=== PATIENT | male | born 1940 | race Caucasian/White ===

== ENCOUNTER 2016-10-21 11:38 | Inpatient (IN) ==
--- NOTE | 2016-10-20 20:47 | Discharge Summary ---
<Yecenia Schultz - Last Filed: 10/21/16 09:45> Date of Encounter: 10/21/16 - Discharge Diagnosis (1) Arthritis of right hip Priority: Primary Status: Acute (2) Accelerated hypertension Priority: Secondary Status: Chronic (3) Chronic kidney disease Priority: Secondary Status: Chronic Qualifiers: Chronic kidney disease stage: unspecified stage Qualified Code(s): N18.9 - Chronic kidney disease, unspecified (4) Coronary artery disease with unstable angina pectoris Priority: Secondary Status: Chronic Qualifiers: Coronary Disease-Associated Artery/Lesion type: unspecified vessel or lesion type [place] vs. transplanted heart: unspecified whether [place] or transplanted heart Qualified Code(s): I25.110 - Atherosclerotic heart disease of [place] coronary artery with unstable angina pectoris (5) Dyslipidemia Priority: Secondary Status: Chronic (6) History of coronary artery bypass graft x 3 Priority: Secondary Status: Chronic (7) Parkinsons disease Priority: Secondary Status: Chronic - Discharge Medications Home Medications: Aspirin [Adult Low Dose Aspirin EC] 81 mg PO HS 10/05/15 [History] FLUoxetine HCl [Prozac] 20 mg PO DAILY 10/05/15 [History] Furosemide [Lasix] 20 mg PO HS 10/05/15 [History] Losartan Potassium [Cozaar] 100 mg PO HS 10/05/15 [History] Nitroglycerin [Nitrostat] 0.4 mg SL AD PRN 10/05/15 [History] Metoprolol [Lopressor] 50 mg PO BID 30 Days 10/14/15 [Rx] Carbidopa/Levodopa 25/100 [Sinemet 25/100] 0.5 each PO TID tablet 02/15/16 [Rx] Oxybutynin [Ditropan] 5 mg PO TID #90 tablet 06/20/16 [Rx] Atorvastatin [Lipitor] 40 mg PO HS 09/19/16 [History] Aspirin Enteric Coated [Aspirin EC] 325 mg PO DAILY #21 tablet 10/20/16 [Rx] OxyCODONE Immed Rel [Roxicodone 5 MG] 5 - 10 mg PO Q6HR PRN #40 tablet 10/20/16 [Rx] Amlodipine Besylate 10 mg PO HS 10/21/16 [History] Cholecalciferol (D-3) [Vitamin D] 5,000 unit PO DAILY 10/21/16 [History] Clopidogrel [Plavix] 75 mg PO HS 10/21/16 [History] Gabapentin 300 mg PO TID 10/21/16 [History] Potassium Chloride [Klor-Con 10] 30 meq PO DAILY 10/21/16 [History] Allergies/Adverse Reactions: Allergies methocarbamol [From Robaxin] Allergy (Verified 10/21/16 13:11) Difficulty Breathing methylprednisolone [From Medrol] Allergy (Verified 10/21/16 13:11) Difficulty Breathing Primary care physician: Renée Norton CNP - Patient Status Disposition: Transfer Inpatient Rehab Fac Condition: Good - Discharge Instructions Follow Up With: Refugio Ware MD [Partnered Physician] - 11/19/16 9:50 am Yecenia Schultz PAC [Physician Forensics Team Director] - 10/30/16 11:15 am Rachid Wheatley CNP [Advanced Practice Nurse] - 03/26/17 2:00 pm Errol,Renée Nash CNP [Primary Care Provider] - 12/24/16 1:30 pm - Hospital Course Hospital course: Mr. Pack is a 75 year old male - Time Spent with Patient Total time spent providing and/or coordinating discharge services: <Refugio Ware - Last Filed: 10/25/16 06:26> Date of Encounter: 10/25/16 Time of Encounter: 06:25 - Discharge Diagnosis (1) Arthritis of right hip Priority: Primary Status: Acute (2) Bradycardia Priority: Secondary Status: Chronic (3) Hypotension Priority: Secondary Status: Chronic Qualifiers: Qualified Code(s): I95.9 - Hypotension, unspecified (4) Malignant neoplasm of prostate Priority: Secondary Status: Chronic (5) Accelerated hypertension Priority: Secondary Status: Chronic (6) Chronic kidney disease Priority: Secondary Status: Chronic Qualifiers: Qualified Code(s): N18.3 - Chronic kidney disease, stage 3 (moderate) (7) Coronary artery disease with unstable angina pectoris Priority: Secondary Status: Chronic Qualifiers: Qualified Code(s): I25.110 - Atherosclerotic heart disease of [place] coronary artery with unstable angina pectoris (8) Dyslipidemia Priority: Secondary Status: Chronic (9) History of coronary artery bypass graft x 3 Priority: Secondary Status: Chronic (10) Parkinsons disease Priority: Secondary Status: Chronic (11) S/P PTCA (percutaneous transluminal coronary angioplasty) Priority: Secondary Status: Chronic (12) Acute blood loss anemia Priority: Primary Status: Acute Primary care physician: Renée Norton CNP - Patient Status Functional capacity at discharge: uses cane/walker Overall status at discharge: patient is progressing back to baseline - Hospital Course Hospital course: Mr. Pack is a 75 year old male The patient had an uneventful postoperative course. They received antibiotics and physical therapy and were discharged in stable condition. There will follow -up in the office in 2 weeks. Aspirin DVT prophylaxis - Time Spent with Patient Total time spent providing and/or coordinating discharge services:
[2016-10-21] MEDS ORDERED: CeFAZolin Pre 2,000 MG/100 ML 2,000 MG/100 ML BAG IVPB ONE (12:02)
[2016-10-21] MEDS ORDERED: Ringers Solution, Lactated 1,000 ML IVC SCH ×2 (12:15→16:23)
[2016-10-21] MEDS ORDERED: *HR* FentaNYL (PF) 100 MCG/2 ML VIAL ONE ×2 (12:45→14:30)
[2016-10-21] MEDS ORDERED: *HR* Midazolam HCl 2 MG/2 ML VIAL ONE (12:46)
[2016-10-21] MEDS ORDERED: *HR* Propofol 200 MG/20 ML VIAL IVP ONE (12:47)
[2016-10-21] MEDS ORDERED: Lidocaine -MPF 2% 2 ML VIAL ONE (12:48)
[2016-10-21] MEDS ORDERED: *HR* HYDROmorphone (PF) 1 MG/ML SYRINGE IVP PRN ×2 (12:51→16:23)
[2016-10-21] MEDS ORDERED: *HR* Labetalol 100 MG/20 ML MDV IVP PRN (12:51)
[2016-10-21] MEDS ORDERED: *HR* Promethazine 25 MG/ML VIAL IVP PRN (12:51)
[2016-10-21] MEDS ORDERED: Ketorolac 30 MG/ML VIAL ONE (12:59)
--- NOTE | 2016-10-21 13:03 | History & Physical Report ---
Date of Encounter: 10/21/16 Time of Encounter: 13:03 24 Hour HP Update - Instructions Instructions: If the History and Physical is less than 30 days old and was completed prior to A.M. admission and or procedure and has NOT been updated on calendar day of procedure please complete this update prior to performing procedure. - Update Patient reports changes in Medical Condition: No Changes in assessment/condition: No Changes in Medication: No Preop tests/diagnostics Reviewed: Yes Surgery Remains Indicated: Yes Consent for Planned Operative Procedure(s) Verified: Yes - Pre-Operative Checklist Preoperative Checklist Indicated: No Prophylactic Antibiotic Ordered: Yes Is VTE Prophylaxis Indicated?: Yes
[2016-10-21] MEDS ORDERED: Acetaminophen IV 1,000 MG/100 ML INFUS..BTL IVPB ONE (13:18)
[2016-10-21] MEDS ORDERED: Famotidine 20 MG/2 ML VIAL IVP ONE (13:18)
--- NOTE | 2016-10-21 13:21 | Anesthesia Evaluation PreOp ---
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 Other Medical History: Denies Any Significant HX Anesthesia History: No Prior Anesthetic Complications Alcohol Use: none Drug use: none Medications and Allergies Aspirin [Adult Low Dose Aspirin EC] 81 mg PO DAILY 10/05/15 [History] FLUoxetine HCl [Prozac] 20 mg PO DAILY 10/05/15 [History] Furosemide [Lasix] 20 mg PO DAILY 10/05/15 [History] Losartan Potassium [Cozaar] 100 mg PO DAILY 10/05/15 [History] Nitroglycerin [Nitrostat] 0.4 mg SL AD PRN 10/05/15 [History] Potassium Chloride [Klor-Con Sprinkle] 10 meq PO TID 10/05/15 [History] Vitamin D3/Folic Acid [Dermacinrx Purefolix Tablet] 5,000 unit PO DAILY [History] Clopidogrel [Plavix] 75 mg PO DAILY 30 Days 10/14/15 [Rx] Metoprolol [Lopressor] 50 mg PO BID 30 Days 10/14/15 [Rx] Carbidopa/Levodopa 25/100 [Sinemet 25/100] 0.5 each PO TID tablet 02/15/16 [Rx] Gabapentin [Gralise] 300 mg PO 04/16/16 [History] Oxybutynin [Ditropan] 5 mg PO TID #90 tablet 06/20/16 [Rx] Amlodipine [Norvasc] 5 mg PO BID 09/19/16 [History] Atorvastatin [Lipitor] 40 mg PO TID 09/19/16 [History] Hydrocodone/Acetaminophen [[place] 10-325 Tablet] 1 each PO PRN 09/19/16 [History] Tizanidine HCl 2 mg PO TID PRN 09/19/16 [History] Aspirin Enteric Coated [Aspirin EC] 325 mg PO DAILY #21 tablet. 10/20/16 [Rx] OxyCODONE Immed Rel [Roxicodone 5 MG] 5 - 10 mg PO Q6HR PRN #40 tablet 10/20/16 [Rx] Allergies methocarbamol [From Robaxin] Allergy (Verified 10/21/16 13:11) Difficulty Breathing methylprednisolone [From Medrol] Allergy (Verified 10/21/16 13:11) Difficulty Breathing - Meds/Allergy Pre-op Review Medications Reviewed: Yes Allergies Reviewed: Yes Beta Blockers on Current Med List: Yes (Took Metoprolol today 080) Anesthesia Results - Labs Laboratory Tests 05/09/16 10/17/16 10/17/16 16:40 09:01 09:01 Hgb 12.6 L Hct 35.9 L Plt Count 231 Sodium 137 Potassium 3.8 BUN 22 POC Creatinine 1.30 Hemoglobin A1c 10/17/16 09:01 Hgb Hct Plt Count Sodium Potassium BUN POC Creatinine Hemoglobin A1c 5.3 - Imaging EKG: report reviewed (SB with First Degree AV Block) Additional studies: Cardiac Cath 2015 EF 65%, patent graft Anesthesia Exam O2 Sat Height 1.75 m Height 1.75 m Height 1.75 m Weight 112.945 kg Weight 112.945 kg Weight 112.945 kg O2 Sat by Pulse Oximetry 98 Vital Signs Temp Pulse Resp BP Pulse Ox 98.0 F 58 18 144/82 98 10/21/16 12:00 10/21/16 12:00 10/21/16 12:00 10/21/16 12:00 10/21/16 12:00 Height: 5'9 Weight: 245 lbs NPO (# of Hours): MN - HEENT Pupil (Motor): Pupils equal, EOMI Mallampati: II Teeth: Normal Oral Opening: Greater than 3 - MOTOR COACH BUS DRIVER LOC: Oriented MOTOR COACH BUS DRIVER Motor: Normal RUE, Normal LUE, Normal RLE, Normal LLE, Normal Face MOTOR COACH BUS DRIVER Sensory: Normal: RUE, LUE, RLE, LLE, Face - Cardiac Rhythm: Regular Murmur: None JVD: No Carotid Bruit: No - Pulmonary Breath Sounds: bilateral Clear Respiratory Effort: Symmetrical Anesthesia Assess/Plan ASA Score: 3 (CAD) Modified Herreid Scale for Level of Consciousness: Cooperative, oriented, and tranquil Anesthetic Plan: General Monitoring Plan: Standard Monitors Recovery Plan: PACU (Discussed GA, agrees to proceed)
[2016-10-21] MEDS ORDERED: Lidocaine -MPF 4% 5 ML AMPUL ONE (13:49)
[2016-10-21] MEDS ORDERED: *HR* Succinylcholine 200 MG/10 ML VIAL IVP ONE (13:56)
[2016-10-21] MEDS ORDERED: EPHEDrine 50 MG/ML VIAL ONE (14:24)
[2016-10-21] MEDS ORDERED: Ondansetron 4 MG/2 ML VIAL ONE (14:32)
[2016-10-21] MEDS ORDERED: Dexamethasone 4 MG/ML VIAL ONE (14:32)
--- NOTE | 2016-10-21 14:56 | Orthopedic Operative Note ---
Date of procedure: 10/21/16 Pre-op diagnosis: Right hip arthritis Post-op diagnosis: same Procedure: Procedure: Right Total Hip Replacment Estimated blood loss: 200 cc Hardware: Biomet DM Cup: G7 fin cup 62 Femoral size echo full profile lateralized stem 11 Head: +9 head with Sabiha Procedural Notes: Grade 4 arthritic changes femoral head and acetabular socket. Operative procedure: The patient was brought to the operating room and placed on the operating room table. After general anesthesia was administered the patient was placed in the lateral decubitus position with the operative leg up. All pressure points were padded appropriately and the head was stabilized in the neutral position. The operative extremity was prepped and draped in the sterile surgical fashion patient received IV antibiotic prior to skin incision. A standard posterior approach is made to the operative hip, the incision was made through the skin and subcutaneous tissue hemostasis was obtained with Bovie cautery. Using careful sharp dissection the fascia was identified and incised exposing the external rotators. The external rotators were released off the greater trochanter and tagged with #2 FiberWire suture. The capsule was T'd open and the hip was brought into internal rotation. Patient noted to have grade 4 arthritic changes femoral head. The femoral neck cut was made at the appropriate level. An anterior capsulotomy was performed for the anterior retractor. Soft tissues removed from the acetabulum. Patient noted to have grade 4 arthritic changes acetabulum. Acetabulum was first reamed medially, and then reamed in 15 degrees of anteversion and 45 degrees off the horizontal. It was reamed up to the appropriate size 62 The appropriate-sized 62 acetabular cup was impacted in place in 15 degrees of anteversion and 45 degrees off the horizontal. This had good fit and fixation. The hip was brought back in to internal rotation and prepared with the box blank machine operator helper followed by the canal finder followed by broaching process in 20 degrees anteversion. It was broached up to the appropriate size 11 The femoral implant was impacted in place in 20 degrees of anteversion. Trial reduction found the hip to be stable with +9 head and Sabiha. The trials were removed and the real implants were impacted in place. The hip was reduced, patient had apparent equal leg lengths. The hip had excellent stability with forward flexion to 90 degrees adduction of 30 degrees and internal rotation of 60 degrees. The hip had no shuck. The hips after 2 minutes with a Betadine saline solution. It was irrigated out with 2 L of pulse irrigation. The external rotators were reattached to drill holes in the greater trochanter. Fascia was closed with a running #2 PDS suture. The deep tissue was irrigated and closed deep with #1 PDS suture superficially with 0 PDS suture and skin was closed with Dermabond and skin yolande. The patient was placed in a sterile dressing and abduction pillow. The patient was extubated and transferred to the recovery room in stable condition. Anesthesia: GETA Surgeon: Refugio Ware Condition: stable Disposition: PACU
--- NOTE | 2016-10-21 15:48 | Anesthesia Evaluation Post Op ---
Date of Encounter: 10/21/16 Time of Encounter: 15:40 - Vital Signs Vital Signs: Vital Signs/O2 Sat/Glucose, Most Current Temp Pulse Resp BP Pulse Ox 10/21/16 15:40 75 14 150/87 95 10/21/16 15:30 75 20 140/92 94 L 10/21/16 15:20 98.3 F 77 14 141/86 93 L 10/21/16 12:00 98.0 F 58 18 144/82 98 - Lungs Lungs: Clear Ascult./Percussion - Airway Airway: Non-obstructed - Cardiovascular Regular Rate - Mental Status Mental Status: Alert & Oriented, Answers Appropriately - Pain Pain Scale: 0 - Nausea Vomiting Nausea Vomiting: Not Present - Hydration Hydration: Ice chips - Discharge PostOp Status: Transfer Patient to floor
[2016-10-21 16:08] LABS: Hematocrit 33.3 % (37.5-50.1); Hemoglobin 11.5 g/dL (12.9-16.9)
[2016-10-21] MEDS ORDERED: MOM Conc 10 ML UD.LIQ PO PRN (16:23)
[2016-10-21] MEDS ORDERED: Nitroglycerin 0.4 MG TAB.SUBL SL PRN (16:23)
[2016-10-21] MEDS ORDERED: Albuterol Neb 1.25 MG/3 ML VIAL IH ONE (16:23)
[2016-10-21] MEDS ORDERED: Naloxone 0.4 MG/ML INJ IVP PRN (16:23)
[2016-10-21] MEDS ORDERED: Sennosides 8.6 MG TABLET PO PRN (16:23)
[2016-10-21] MEDS ORDERED: Ondansetron 4 MG/2 ML VIAL IVP PRN (16:23)
[2016-10-21] MEDS ORDERED: Temazepam 15 MG CAPSULE PO PRN (16:23)
[2016-10-21] MEDS ORDERED: ceFAZolin 2,000 MG in D5% in Water 100 ML IVPB SCH (16:30)
[2016-10-21] MEDS: *HR* Enoxaparin 30 MG/0.3 ML SYRINGE SQ SCH (16:54)
[2016-10-21] MEDS: *HR* OxyCODONE Immed Rel 5 MG TABLET PO PRN ×2 (16:55→22:38)
[2016-10-21] MEDS: Gabapentin 300 MG CAPSULE PO SCH ×2 (16:56→21:02)
[2016-10-21] MEDS: Ascorbic Acid 500 MG TABLET PO SCH (16:56)
[2016-10-21] MEDS: Carbidopa/Levodopa 25/100 TABLET PO SCH ×2 (16:56→21:04)
[2016-10-21] MEDS ORDERED: *HR* Enoxaparin 30 MG/0.3 ML SYRINGE SQ SCH (18:00)
[2016-10-21] MEDS ORDERED: Aspirin Enteric Coated 81 MG Tablet PO SCH (21:00)
[2016-10-21] MEDS: amLODIPine 5 MG TABLET PO SCH (21:03)
[2016-10-21] MEDS: Furosemide 20 MG TABLET PO SCH (21:04)
[2016-10-21] MEDS: ceFAZolin 2,000 MG in D5% in Water 100 ML IVPB SCH (22:37)
[2016-10-22] MEDS: *HR* Enoxaparin 30 MG/0.3 ML SYRINGE SQ SCH ×2 (04:59→18:38)
[2016-10-22 06:02] LABS: Hematocrit 29.3 % (37.5-50.1); Hemoglobin 10.2 g/dL (12.9-16.9)
[2016-10-22 06:21] LABS: BUN/Creatinine Ratio 18 (6-26); Blood Urea Nitrogen 24 mg/dL (8-26); Carbon Dioxide 24 mEq/L (19-29); Chloride 103 mEq/L (98-109); Glucose 174 mg/dL (70-99); Osmolality,Calculated 288 (280-300); Potassium 4.6 mEq/L (3.5-4.5); Sodium 135 mEq/L (136-145); eGFR For African Americans > 60 (> 60); eGFR For Non-African Americans 52 (> 60)
--- NOTE | 2016-10-22 06:34 | Orthopedics Progress Note ---
Date of Encounter: 10/22/16 Time of Encounter: 06:33 - Assessment and Plan (1) Arthritis of right hip Current Visit: Yes Status: Acute (2) Bradycardia Current Visit: No Status: Chronic (3) Hypotension Current Visit: No Status: Chronic Qualifiers: Hypotension type: unspecified hypotension type Qualified Code(s): I95.9 - Hypotension, unspecified (4) Malignant neoplasm of prostate Current Visit: No Status: Chronic (5) Accelerated hypertension Current Visit: No Status: Chronic (6) Chronic kidney disease Current Visit: No Status: Chronic Qualifiers: Chronic kidney disease stage: stage 3 (moderate) Qualified Code(s): N18.3 - Chronic kidney disease, stage 3 (moderate) (7) Coronary artery disease with unstable angina pectoris Current Visit: No Status: Chronic Qualifiers: Coronary Disease-Associated Artery/Lesion type: unspecified vessel or lesion type [place] vs. transplanted heart: unspecified whether [place] or transplanted heart Qualified Code(s): I25.110 - Atherosclerotic heart disease of [place] coronary artery with unstable angina pectoris (8) Dyslipidemia Current Visit: No Status: Chronic (9) History of coronary artery bypass graft x 3 Current Visit: No Status: Chronic (10) Parkinsons disease Current Visit: No Status: Chronic (11) S/P PTCA (percutaneous transluminal coronary angioplasty) Current Visit: No Status: Chronic Subjective Interval history: Patient was seen this morning doing well without complaints. Afebrile vital signs stable. Operative extremity: Neurovascularly intact Dressing clean dry and intact Calves nontender Assessment and plan: Continue with postoperative care Hemoglobin 10.2 Objective Vital signs: Vital Signs Temp Pulse Resp BP Pulse Ox 10/22/16 03:25 98.2 F 67 18 120/76 93 L 10/21/16 23:49 98.5 F 61 15 133/71 92 L 10/21/16 21:19 62 144/78 10/21/16 19:02 98.1 F 61 19 133/75 96 10/21/16 17:04 97.6 F 63 18 126/73 99 10/21/16 17:02 16 95 10/21/16 16:31 95 10/21/16 16:23 97.8 F 63 16 137/79 96 10/21/16 15:49 98.1 F 72 14 127/85 95 10/21/16 15:40 75 14 150/87 95 10/21/16 15:30 75 20 140/92 94 L 10/21/16 15:20 98.3 F 77 14 141/86 93 L 10/21/16 12:00 98.0 F 58 18 144/82 98 Intake and Output 10/21/16 10/21/16 10/22/16 15:59 23:59 07:59 Intake Total 100 / 100 Output Total 200 / 200 100 / 100 Balance -200 / -200 0 / 0 Intake: IV Fluids 100 / 100 Ancef 2,000 MG In 100 / 100 Dextrose 5% 100 ML @ 200 mls/hr IVPB Q8H [facility] Rx#: [id number] Output: Urine 100 / 100 Estimated Blood Loss 200 / 200 Other: Weight 112.945 kg - Labs CBC & BMP: 10/22/16 05:05 10/22/16 05:05 Labs: Abnormal lab results Hgb 10.2 g/dL (12.9-16.9) L 10/22/16 05:05 Hct 29.3 % (37.5-50.1) L 10/22/16 05:05 Sodium 135 mEq/L (136-145) L 10/22/16 05:05 Potassium 4.6 mEq/L (3.5-4.5) H 10/22/16 05:05 Creatinine 1.34 mg/dL (0.72-1.25) H 10/22/16 05:05 Est GFR (Non-Af Amer) 52 (> 60) L 10/22/16 05:05 Glucose 174 mg/dL (70-99) H 10/22/16 05:05 - VTE Documentation of Mechanical Device: Venous foot pump, device Consult Discharge Plan - Plan Referrals: Renée Norton, PUMP ERECTOR [Primary Care Provider] -
[2016-10-22] MEDS: ceFAZolin 2,000 MG in D5% in Water 100 ML IVPB SCH (07:14)
[2016-10-22] MEDS: Ascorbic Acid 500 MG TABLET PO SCH ×2 (07:43→15:53)
[2016-10-22] MEDS: Carbidopa/Levodopa 25/100 TABLET PO SCH ×3 (07:43→19:38)
[2016-10-22] MEDS: Multivit/Ca/Min/Fe/FA 1 TAB TABLET PO SCH (07:43)
[2016-10-22] MEDS: Gabapentin 300 MG CAPSULE PO SCH ×3 (07:43→19:37)
[2016-10-22] MEDS: *HR* OxyCODONE Immed Rel 5 MG TABLET PO PRN ×3 (07:44→15:54)
[2016-10-22] MEDS: Cholecalciferol (D-3) 1,000 UNIT TABLET PO SCH (07:44)
[2016-10-22] MEDS: FLUoxetine 20 MG CAPSULE PO SCH (07:44)
[2016-10-22] MEDS: amLODIPine 5 MG TABLET PO SCH (19:37)
[2016-10-22] MEDS: Furosemide 20 MG TABLET PO SCH (19:38)
[2016-10-23] MEDS: *HR* Enoxaparin 30 MG/0.3 ML SYRINGE SQ SCH ×2 (05:28→18:30)
[2016-10-23 06:44] LABS: Hematocrit 25.5 % (37.5-50.1); Hemoglobin 8.7 g/dL (12.9-16.9)
[2016-10-23 06:55] LABS: Calcium 9.3 mg/dL (8.6-10.8); Potassium 4.3 mEq/L (3.5-4.5)
--- NOTE | 2016-10-23 07:35 | Orthopedics Progress Note ---
Date of Encounter: 10/23/16 Time of Encounter: 07:35 - Assessment and Plan (1) Arthritis of right hip Current Visit: Yes Status: Acute (2) Bradycardia Current Visit: No Status: Chronic (3) Hypotension Current Visit: No Status: Chronic Qualifiers: Qualified Code(s): I95.9 - Hypotension, unspecified (4) Malignant neoplasm of prostate Current Visit: No Status: Chronic (5) Accelerated hypertension Current Visit: No Status: Chronic (6) Chronic kidney disease Current Visit: No Status: Chronic Qualifiers: Qualified Code(s): N18.3 - Chronic kidney disease, stage 3 (moderate) (7) Coronary artery disease with unstable angina pectoris Current Visit: No Status: Chronic Qualifiers: Qualified Code(s): I25.110 - Atherosclerotic heart disease of [place] coronary artery with unstable angina pectoris (8) Dyslipidemia Current Visit: No Status: Chronic (9) History of coronary artery bypass graft x 3 Current Visit: No Status: Chronic (10) Parkinsons disease Current Visit: No Status: Chronic (11) S/P PTCA (percutaneous transluminal coronary angioplasty) Current Visit: No Status: Chronic (12) Acute blood loss anemia Current Visit: Yes Status: Acute Subjective Interval history: Patient was seen this morning doing well without complaints. Afebrile vital signs stable. Operative extremity: Neurovascularly intact Dressing clean dry and intact Calves nontender Assessment and plan: Continue with postoperative care Hematocrit 25, creatinine 1.9 for patient will receive 2 units of blood repeat BMP in a.m. Objective Vital signs: Vital Signs Temp Pulse Resp BP Pulse Ox 10/23/16 06:40 98.5 F 84 16 137/74 95 10/23/16 00:00 98.7 F 80 16 135/69 94 L 10/22/16 21:49 98.2 F 63 17 107/61 94 L 10/22/16 15:37 98.1 F 58 18 99/64 93 L 10/22/16 11:02 97.9 F 58 16 148/82 93 L Intake and Output 10/22/16 10/22/16 10/23/16 15:59 23:59 07:59 Intake Total 340 / 340 Output Total 100 / 100 500 / 500 Balance 340 / 340 -100 / -100 -500 / -500 Intake: IV Fluids 100 / 100 Ancef 2,000 MG In 100 / 100 Dextrose 5% 100 ML @ 200 mls/hr IVPB Q8H [facility] Rx#: [id number] Oral 240 / 240 Output: Urine 100 / 100 500 / 500 Other: Meal Lunch Percent of Meal Consumed 100% - Labs CBC & BMP: 10/23/16 06:06 10/23/16 06:06 Labs: Abnormal lab results Hgb 8.7 g/dL (12.9-16.9) L D 10/23/16 06:06 Hct 25.5 % (37.5-50.1) L 10/23/16 06:06 Sodium 133 mEq/L (136-145) L 10/23/16 06:06 BUN 41 mg/dL (8-26) H D 10/23/16 06:06 Creatinine 1.94 mg/dL (0.72-1.25) H 10/23/16 06:06 Est GFR ( Amer) 41 (> 60) L 10/23/16 06:06 Est GFR (Non-Af Amer) 34 (> 60) L 10/23/16 06:06 Glucose 163 mg/dL (70-99) H 10/23/16 06:06 - VTE Documentation of Mechanical Device: Venous foot pump, device Consult Discharge Plan - Plan Referrals: Refugio Ware MD [Partnered Physician] - 11/19/16 9:50 am Yecenia Schultz PAC [Physician Reserve Officer] - 10/30/16 11:15 am Rachid Wheatley CNP [Advanced Practice Nurse] - 03/26/17 2:00 pm Renée Norton CNP [Primary Care Provider] - 12/24/16 1:30 pm
[2016-10-23] MEDS ORDERED: Furosemide 20 MG/2 ML VIAL IVP PRN ×2 (09:00)
[2016-10-23] MEDS ORDERED: Ringers Solution, Lactated 1,000 ML IVC ONE (09:14)
[2016-10-23] MEDS ORDERED: 0.9 % Sodium Chloride 250 ML ONE (11:09)
[2016-10-23] MEDS: *HR* OxyCODONE Immed Rel 5 MG TABLET PO PRN ×2 (11:11→15:40)
[2016-10-23] MEDS: Gabapentin 300 MG CAPSULE PO SCH ×3 (11:12→20:03)
[2016-10-23] MEDS: Carbidopa/Levodopa 25/100 TABLET PO SCH ×3 (11:12→20:03)
[2016-10-23] MEDS: FLUoxetine 20 MG CAPSULE PO SCH (11:12)
[2016-10-23] MEDS: Multivit/Ca/Min/Fe/FA 1 TAB TABLET PO SCH (11:12)
[2016-10-23] MEDS: Ascorbic Acid 500 MG TABLET PO SCH ×2 (11:13→15:51)
[2016-10-23] MEDS: Cholecalciferol (D-3) 1,000 UNIT TABLET PO SCH (11:13)
[2016-10-23] MEDS: Ringers Solution, Lactated 1,000 ML IVC SCH (18:44)
[2016-10-23] MEDS: amLODIPine 5 MG TABLET PO SCH (20:02)
[2016-10-23] MEDS: Furosemide 20 MG TABLET PO SCH (20:04)
[2016-10-24] MEDS: *HR* OxyCODONE Immed Rel 5 MG TABLET PO PRN ×2 (00:15→06:54)
[2016-10-24] MEDS: *HR* Enoxaparin 30 MG/0.3 ML SYRINGE SQ SCH ×2 (05:47→17:55)
[2016-10-24 06:29] LABS: BUN/Creatinine Ratio 25 (6-26); Blood Urea Nitrogen 33 mg/dL (8-26); Calcium 9.4 mg/dL (8.6-10.8); Carbon Dioxide 25 mEq/L (19-29); Chloride 102 mEq/L (98-109); Glucose 138 mg/dL (70-99); Osmolality,Calculated 289 (280-300); Potassium 4.1 mEq/L (3.5-4.5); Sodium 135 mEq/L (136-145); eGFR For African Americans > 60 (> 60); eGFR For Non-African Americans 53 (> 60)
[2016-10-24 07:10] LABS: Hematocrit 27.7 % (37.5-50.1); Hemoglobin 9.4 g/dL (12.9-16.9)
[2016-10-24] MEDS ORDERED: 0.9 % Sodium Chloride 1,000 ML IVC ONE (07:25)
--- NOTE | 2016-10-24 08:13 | Orthopedics Progress Note ---
Date of Encounter: 10/24/16 Time of Encounter: 08:13 - Assessment and Plan (1) Arthritis of right hip Current Visit: Yes Status: Acute (2) Bradycardia Current Visit: No Status: Chronic (3) Hypotension Current Visit: No Status: Chronic Qualifiers: Qualified Code(s): I95.9 - Hypotension, unspecified (4) Malignant neoplasm of prostate Current Visit: No Status: Chronic (5) Accelerated hypertension Current Visit: No Status: Chronic (6) Chronic kidney disease Current Visit: No Status: Chronic Qualifiers: Qualified Code(s): N18.3 - Chronic kidney disease, stage 3 (moderate) (7) Coronary artery disease with unstable angina pectoris Current Visit: No Status: Chronic Qualifiers: Qualified Code(s): I25.110 - Atherosclerotic heart disease of [place] coronary artery with unstable angina pectoris (8) Dyslipidemia Current Visit: No Status: Chronic (9) History of coronary artery bypass graft x 3 Current Visit: No Status: Chronic (10) Parkinsons disease Current Visit: No Status: Chronic (11) S/P PTCA (percutaneous transluminal coronary angioplasty) Current Visit: No Status: Chronic (12) Acute blood loss anemia Current Visit: Yes Status: Acute Subjective Interval history: Patient was seen this morning increased pain Afebrile vital signs stable. Operative extremity: Neurovascularly intact Dressing clean dry and intact Calves nontender Assessment and plan: Continue with postoperative care Hematocrit 27, creatinine 1.33 we will check x-rays today possible discharges afternoon Objective Vital signs: Vital Signs Temp Pulse Resp BP Pulse Ox 10/24/16 06:41 98.1 F 68 18 129/73 96 10/24/16 04:55 98.5 F 66 17 127/76 98 10/24/16 00:37 98.1 F 79 16 144/79 94 L 10/23/16 18:45 99.0 F 83 16 122/60 93 L 10/23/16 16:12 99.0 F 76 20 118/78 96 10/23/16 15:57 99.0 F 80 20 124/68 16 L 10/23/16 15:44 99.0 F 80 20 124/68 16 L 10/23/16 12:32 98.8 F 78 20 132/66 92 L 10/23/16 12:17 98.8 F 80 20 142/68 91 L 10/23/16 11:31 98.7 F 80 20 122/60 10/23/16 10:04 98.3 F 78 16 134/81 97 Intake and Output 10/23/16 10/24/16 10/24/16 23:59 07:59 15:59 Intake Total 470 / 470 Balance 470 / 470 Intake: Oral 120 / 120 Blood Product 350 / 350 Rbcs Leuko Poor As-1 350 / 350 Unit [id number] Other: Meal Dinner Percent of Meal Consumed 50% # Urine Diapers 1 - Labs CBC & BMP: 10/24/16 05:54 10/24/16 05:54 Labs: Abnormal lab results Hgb 9.4 g/dL (12.9-16.9) L 10/24/16 05:54 Hct 27.7 % (37.5-50.1) L 10/24/16 05:54 Sodium 135 mEq/L (136-145) L 10/24/16 05:54 BUN 33 mg/dL (8-26) H 10/24/16 05:54 Creatinine 1.33 mg/dL (0.72-1.25) H 10/24/16 05:54 Est GFR (Non-Af Amer) 53 (> 60) L 10/24/16 05:54 Glucose 138 mg/dL (70-99) H 10/24/16 05:54 - VTE Documentation of Mechanical Device: Venous foot pump, device Consult Discharge Plan - Plan Referrals: Refugio Ware MD [Partnered Physician] - 11/19/16 9:50 am Yecenia Schultz PAC [Physician Tube Coverer] - 10/30/16 11:15 am aRchid Wheatley CNP [Advanced Practice Nurse] - 03/26/17 2:00 pm Renée Norton CNP [Primary Care Provider] - 12/24/16 1:30 pm
[2016-10-24] MEDS: Carbidopa/Levodopa 25/100 TABLET PO SCH ×3 (08:41→20:13)
[2016-10-24] MEDS: Gabapentin 300 MG CAPSULE PO SCH ×3 (08:41→20:13)
[2016-10-24] MEDS: Ascorbic Acid 500 MG TABLET PO SCH ×2 (08:41→17:55)
[2016-10-24] MEDS: Cholecalciferol (D-3) 1,000 UNIT TABLET PO SCH (08:42)
[2016-10-24] MEDS: Multivit/Ca/Min/Fe/FA 1 TAB TABLET PO SCH (08:42)
[2016-10-24] MEDS: FLUoxetine 20 MG CAPSULE PO SCH (08:42)
[2016-10-24] MEDS: Ringers Solution, Lactated 1,000 ML IVC SCH (10:53)
[2016-10-24] MEDS: Acetaminophen 325 MG TABLET PO PRN (15:59)
[2016-10-24] MEDS: Furosemide 20 MG TABLET PO SCH (20:12)
[2016-10-24] MEDS: amLODIPine 5 MG TABLET PO SCH (20:12)
[2016-10-25] MEDS: Ringers Solution, Lactated 1,000 ML IVC SCH (00:22)
[2016-10-25] MEDS: *HR* Enoxaparin 30 MG/0.3 ML SYRINGE SQ SCH ×2 (05:59→17:33)
--- NOTE | 2016-10-25 06:27 | Orthopedics Progress Note ---
Date of Encounter: 10/25/16 Time of Encounter: 06:26 - Assessment and Plan (1) Arthritis of right hip Current Visit: Yes Status: Acute (2) Bradycardia Current Visit: No Status: Chronic (3) Hypotension Current Visit: No Status: Chronic Qualifiers: Qualified Code(s): I95.9 - Hypotension, unspecified (4) Malignant neoplasm of prostate Current Visit: No Status: Chronic (5) Accelerated hypertension Current Visit: No Status: Chronic (6) Chronic kidney disease Current Visit: No Status: Chronic Qualifiers: Qualified Code(s): N18.3 - Chronic kidney disease, stage 3 (moderate) (7) Coronary artery disease with unstable angina pectoris Current Visit: No Status: Chronic Qualifiers: Qualified Code(s): I25.110 - Atherosclerotic heart disease of [place] coronary artery with unstable angina pectoris (8) Dyslipidemia Current Visit: No Status: Chronic (9) History of coronary artery bypass graft x 3 Current Visit: No Status: Chronic (10) Parkinsons disease Current Visit: No Status: Chronic (11) S/P PTCA (percutaneous transluminal coronary angioplasty) Current Visit: No Status: Chronic (12) Acute blood loss anemia Current Visit: Yes Status: Acute Subjective Interval history: Patient was seen this morning increased pain Afebrile vital signs stable. Operative extremity: Neurovascularly intact Dressing clean dry and intact Calves nontender Assessment and plan: Continue with postoperative care Discharge today Objective Vital signs: Vital Signs Temp Pulse Resp BP Pulse Ox 10/25/16 01:21 99.2 F 73 16 147/79 95 10/24/16 21:48 98.8 F 74 17 152/79 97 10/24/16 15:16 98.8 F 91 14 131/73 95 10/24/16 11:04 98.4 F 84 12 125/67 97 10/24/16 10:18 98.7 F 92 14 134/73 96 10/24/16 06:41 98.1 F 68 18 129/73 96 Intake and Output 10/24/16 10/24/16 10/25/16 15:59 23:59 07:59 Intake Total 2710 / 2710 1000 / 1000 Balance 2710 / 2710 1000 / 1000 Intake: IV Fluids 1900 / 1900 1000 / 1000 0.9 % Sodium Chloride 1, 1000 / 1000 000 ML @ 3750 mls/hr IVC .Q16M ONE Rx#:[id number] Lactated Ringers 1,000 ML 900 / 900 1000 / 1000 @ 75 mls/hr IVC .[id number] ANNIKA Rx#:[id number] Oral 810 / 810 Other: Meal Breakfast Percent of Meal Consumed 60% # Voids 1 # Urine Diapers 1 1 2 - Labs CBC & BMP: 10/24/16 05:54 10/24/16 05:54 Labs: Abnormal lab results Hgb 9.4 g/dL (12.9-16.9) L 10/24/16 05:54 Hct 27.7 % (37.5-50.1) L 10/24/16 05:54 Sodium 135 mEq/L (136-145) L 10/24/16 05:54 BUN 33 mg/dL (8-26) H 10/24/16 05:54 Creatinine 1.33 mg/dL (0.72-1.25) H 10/24/16 05:54 Est GFR (Non-Af Amer) 53 (> 60) L 10/24/16 05:54 Glucose 138 mg/dL (70-99) H 10/24/16 05:54 - VTE Documentation of Mechanical Device: Venous foot pump, device Consult Discharge Plan - Plan Referrals: Refugio Ware MD [Partnered Physician] - 11/19/16 9:50 am Yecenia Schultz, PAC [Physician Body Straightener] - 10/30/16 11:15 am Rachid Wheatley CNP [Advanced Practice Nurse] - 03/26/17 2:00 pm Renée Norton CNP [Primary Care Provider] - 12/24/16 1:30 pm
[2016-10-25] MEDS: Multivit/Ca/Min/Fe/FA 1 TAB TABLET PO SCH (08:10)
[2016-10-25] MEDS: FLUoxetine 20 MG CAPSULE PO SCH (08:10)
[2016-10-25] MEDS: Cholecalciferol (D-3) 1,000 UNIT TABLET PO SCH (08:11)
[2016-10-25] MEDS: Carbidopa/Levodopa 25/100 TABLET PO SCH ×3 (08:11→21:12)
[2016-10-25] MEDS: Gabapentin 300 MG CAPSULE PO SCH ×3 (08:11→21:12)
[2016-10-25] MEDS: Ascorbic Acid 500 MG TABLET PO SCH ×2 (08:11→17:33)
[2016-10-25 08:53] LABS: Hematocrit 26.3 % (37.5-50.1)
[2016-10-25 09:07] LABS: BUN/Creatinine Ratio 20 (6-26); Blood Urea Nitrogen 17 mg/dL (8-26); Carbon Dioxide 26 mEq/L (19-29); Chloride 103 mEq/L (98-109); Glucose 149 mg/dL (70-99); Osmolality,Calculated 292 (280-300); Potassium 3.5 mEq/L (3.5-4.5); Sodium 139 mEq/L (136-145); eGFR For African Americans > 60 (> 60); eGFR For Non-African Americans > 60 (> 60)
[2016-10-25] MEDS: *HR* OxyCODONE Immed Rel 5 MG TABLET PO PRN ×3 (13:56→23:21)
[2016-10-25] MEDS: Acetaminophen 325 MG TABLET PO PRN (15:09)
[2016-10-25] MEDS: Furosemide 20 MG TABLET PO SCH (21:12)
[2016-10-25] MEDS: amLODIPine 5 MG TABLET PO SCH (21:12)
[2016-10-26] MEDS: *HR* OxyCODONE Immed Rel 5 MG TABLET PO PRN ×3 (05:27→14:26)
[2016-10-26] MEDS: *HR* Enoxaparin 30 MG/0.3 ML SYRINGE SQ SCH ×2 (05:31→17:37)
[2016-10-26] MEDS: Gabapentin 300 MG CAPSULE PO SCH ×3 (08:41→21:23)
[2016-10-26] MEDS: FLUoxetine 20 MG CAPSULE PO SCH (08:41)
[2016-10-26] MEDS: Multivit/Ca/Min/Fe/FA 1 TAB TABLET PO SCH (08:41)
[2016-10-26] MEDS: Cholecalciferol (D-3) 1,000 UNIT TABLET PO SCH (08:41)
[2016-10-26] MEDS: Carbidopa/Levodopa 25/100 TABLET PO SCH ×3 (08:41→21:23)
[2016-10-26] MEDS: Acetaminophen 325 MG TABLET PO PRN (08:41)
[2016-10-26] MEDS: Ascorbic Acid 500 MG TABLET PO SCH ×2 (08:41→17:37)
[2016-10-26] MEDS ORDERED: Acetaminophen IV 1,000 MG/100 ML INFUS..BTL IVPB PRN (19:35)
[2016-10-26] MEDS: amLODIPine 5 MG TABLET PO SCH (21:22)
[2016-10-26] MEDS: Furosemide 20 MG TABLET PO SCH (21:23)
[2016-10-27] MEDS: *HR* OxyCODONE Immed Rel 5 MG TABLET PO PRN ×4 (02:10→17:50)
[2016-10-27] MEDS: *HR* Enoxaparin 30 MG/0.3 ML SYRINGE SQ SCH ×2 (05:42→17:53)
[2016-10-27] MEDS: FLUoxetine 20 MG CAPSULE PO SCH (07:40)
[2016-10-27] MEDS: Acetaminophen 325 MG TABLET PO PRN ×3 (07:40→17:50)
[2016-10-27] MEDS: Cholecalciferol (D-3) 1,000 UNIT TABLET PO SCH (07:41)
[2016-10-27] MEDS: Gabapentin 300 MG CAPSULE PO SCH ×3 (07:41→20:14)
[2016-10-27] MEDS: Ascorbic Acid 500 MG TABLET PO SCH ×2 (07:41→17:50)
[2016-10-27] MEDS: Carbidopa/Levodopa 25/100 TABLET PO SCH ×3 (07:41→20:16)
[2016-10-27] MEDS: Multivit/Ca/Min/Fe/FA 1 TAB TABLET PO SCH (07:41)
--- NOTE | 2016-10-27 18:41 | Orthopedics Progress Note ---
Date of Encounter: 10/27/16 Time of Encounter: 18:41 Subjective Principal diagnosis: s/p right RICARDO Interval history: The patient is without complaints. Afebrile vital signs are stable. Incision is clean dry and intact. Neurovascularly intact with regard to bilateral lower extremities. Assessment :stable. Plan mobilize ,continue analgesics, discharge planning. Objective Vital signs: Vital Signs Temp Pulse Resp BP Pulse Ox 10/27/16 15:10 98.3 F 83 16 157/67 94 L 10/27/16 10:02 99.1 F 83 16 151/84 98 10/27/16 06:41 98.7 F 86 18 148/86 96 10/27/16 00:10 99.1 F 80 18 150/81 95 10/26/16 20:31 97.9 F 79 18 153/79 95 Intake and Output 10/27/16 10/27/16 10/27/16 07:59 15:59 23:59 Intake Total 300 / 300 850 / 850 Output Total 1175 / 1175 300 / 300 Balance -1175 / -1175 300 / 300 550 / 550 Intake: Oral 300 / 300 850 / 850 Output: Urine 1175 / 1175 300 / 300 Other: Meal Dinner Percent of Meal Consumed 90% Stool Size Moderate Stool Consistency formed # Voids 1 1 # Urine Diapers 1 1 1 # Bowel Movements 1 - Labs CBC & BMP: 10/25/16 08:07 10/25/16 08:07 Labs: Abnormal lab results Hgb 9.0 g/dL (12.9-16.9) L 10/25/16 08:07 Hct 26.3 % (37.5-50.1) L 10/25/16 08:07 Glucose 149 mg/dL (70-99) H 10/25/16 08:07 - VTE Documentation of Mechanical Device: Venous foot pump, device Consult Discharge Plan - Plan Referrals: Refugio Ware MD [Partnered Physician] - 11/19/16 9:50 am Yecenia Schultz PAC [Physician Director Of Field Sales] - 10/30/16 11:15 am Rachid Wheatley CNP [Advanced Practice Nurse] - 03/26/17 2:00 pm Renée Norton CNP [Primary Care Provider] - 12/24/16 1:30 pm
[2016-10-27] MEDS: Furosemide 20 MG TABLET PO SCH (20:16)
[2016-10-27] MEDS: amLODIPine 5 MG TABLET PO SCH (20:20)
[2016-10-28] MEDS: Acetaminophen 325 MG TABLET PO PRN (01:09)
[2016-10-28] MEDS: *HR* OxyCODONE Immed Rel 5 MG TABLET PO PRN ×2 (01:09→08:48)
[2016-10-28] MEDS: *HR* Enoxaparin 30 MG/0.3 ML SYRINGE SQ SCH (06:01)
--- NOTE | 2016-10-28 06:40 | Orthopedics Progress Note ---
Date of Encounter: 10/28/16 Time of Encounter: 06:40 - Assessment and Plan (1) Arthritis of right hip Current Visit: Yes Status: Acute (2) Bradycardia Current Visit: No Status: Chronic (3) Hypotension Current Visit: No Status: Chronic Qualifiers: Qualified Code(s): I95.9 - Hypotension, unspecified (4) Malignant neoplasm of prostate Current Visit: No Status: Chronic (5) Accelerated hypertension Current Visit: No Status: Chronic (6) Chronic kidney disease Current Visit: No Status: Chronic Qualifiers: Qualified Code(s): N18.3 - Chronic kidney disease, stage 3 (moderate) (7) Coronary artery disease with unstable angina pectoris Current Visit: No Status: Chronic Qualifiers: Qualified Code(s): I25.110 - Atherosclerotic heart disease of [place] coronary artery with unstable angina pectoris (8) Dyslipidemia Current Visit: No Status: Chronic (9) History of coronary artery bypass graft x 3 Current Visit: No Status: Chronic (10) Parkinsons disease Current Visit: No Status: Chronic (11) S/P PTCA (percutaneous transluminal coronary angioplasty) Current Visit: No Status: Chronic (12) Acute blood loss anemia Current Visit: Yes Status: Acute Subjective Principal diagnosis: s/p right RICARDO Interval history: Patient was seen this morning increased pain Afebrile vital signs stable. Operative extremity: Neurovascularly intact Dressing clean dry and intact Calves nontender Assessment and plan: Continue with postoperative care Discharge today Objective Vital signs: Vital Signs Temp Pulse Resp BP Pulse Ox 10/28/16 04:17 98.6 F 78 94 147/72 10/28/16 00:05 98.5 F 92 97 129/77 10/27/16 19:41 98.9 F 85 14 146/66 93 L 10/27/16 15:10 98.3 F 83 16 157/67 94 L 10/27/16 10:02 99.1 F 83 16 151/84 98 10/27/16 06:41 98.7 F 86 18 148/86 96 Intake and Output 10/27/16 10/27/16 10/28/16 15:59 23:59 07:59 Intake Total 300 / 300 850 / 850 Output Total 300 / 300 Balance 300 / 300 550 / 550 Intake: Oral 300 / 300 850 / 850 Output: Urine 300 / 300 Other: Meal Dinner Percent of Meal Consumed 90% Stool Size Large Stool Consistency formed Stool Color Brown # Voids 1 1 1 # Urine Diapers 1 1 # Bowel Movements 1 - Labs CBC & BMP: 10/25/16 08:07 10/25/16 08:07 Labs: Abnormal lab results Hgb 9.0 g/dL (12.9-16.9) L 10/25/16 08:07 Hct 26.3 % (37.5-50.1) L 10/25/16 08:07 Glucose 149 mg/dL (70-99) H 10/25/16 08:07 - VTE Documentation of Mechanical Device: Venous foot pump, device Consult Discharge Plan - Plan Referrals: Refugio Ware MD [Partnered Physician] - 11/19/16 9:50 am Yecenia Schultz PAC [Physician Tavern Keeper] - 10/30/16 11:15 am Rachid Wheatley CNP [Advanced Practice Nurse] - 03/26/17 2:00 pm Errol,Renée Nash CNP [Primary Care Provider] - 12/24/16 1:30 pm
[2016-10-28 06:55] VITALS: BP 135/71
[2016-10-28] MEDS: Carbidopa/Levodopa 25/100 TABLET PO SCH (08:48)
[2016-10-28] MEDS: Ascorbic Acid 500 MG TABLET PO SCH (08:48)
[2016-10-28] MEDS: Multivit/Ca/Min/Fe/FA 1 TAB TABLET PO SCH (08:48)
[2016-10-28] MEDS: Cholecalciferol (D-3) 1,000 UNIT TABLET PO SCH (08:48)
[2016-10-28] MEDS: Gabapentin 300 MG CAPSULE PO SCH (08:48)
[2016-10-28] MEDS: FLUoxetine 20 MG CAPSULE PO SCH (08:48)
== END 2016-10-28 13:05 | DRG 470 ==
LOC: SAMDAY 11:38 → 3NENU 16:25
PROVIDERS: ADMIT Orthopaedic Surgery; ATTEND Orthopaedic Surgery

== ENCOUNTER 2019-11-07 22:34 | Observation (INO) ==
[2019-11-07 23:39] LABS: Basophils % 0.2 %; Eosinophils # 0.2 K/mcL (0.0-0.6); Hematocrit 33.1 % (37.5-50.1); Hemoglobin 12.3 g/dL (12.9-16.9); Immature Granulocytes % 0.7 % (0-4); Lymphocytes # 1.2 K/mcL (0.6-4.6); Lymphocytes % 14.4 %; Mean Corpuscular HGB Conc 37.2 g/dL (31.6-35.5); Mean Corpuscular Hemoglobin 36.1 pg (28.0-33.3); Mean Corpuscular Volume 97.1 fL (83.0-100.0); Mean Platelet Volume 10.2 fL (9.4-12.4); Monocytes # 0.7 K/mcL (0.0-1.3); Monocytes % 8.5 %; Platelet Count 198 K/mcL (140-400); Red Blood Count 3.41 M/mcL (4.19-5.50); Red Cell Distribution Width 13.1 % (11.5-14.5); Segmented Neutrophils % 74.2 %; White Blood Count 8.1 K/mcL (4.3-11.1)
[2019-11-07] MEDS ORDERED: Morphine Sulfate 2 MG/ML SYRINGE IVP STA (23:47)
[2019-11-07 23:55] LABS: BUN/Creatinine Ratio 19 (6-26); Blood Urea Nitrogen 23 mg/dL (8-23); Calcium 9.3 mg/dL (8.6-10.3); Carbon Dioxide 28 mEq/L (23-29); Chloride 98 mEq/L (98-107); Glucose 130 mg/dL (70-105); Osmolality,Calculated 281 (280-300); Potassium 3.8 mEq/L (3.5-5.1); Sodium 133 mEq/L (136-145); eGFR For African Americans > 60 (> 60); eGFR For Non-African Americans 59 (> 60)
[2019-11-08] MEDS ORDERED: Morphine Sulfate 2 MG/ML SYRINGE IVP ONE (03:10)
[2019-11-08] MEDS ORDERED: Naloxone 0.4 MG/ML INJ IVP PRN ×2 (04:22→04:23)
[2019-11-08] MEDS ORDERED: Acetaminophen 325 MG TABLET PO PRN (04:23)
[2019-11-08] MEDS ORDERED: Metoprolol XL (24 HR) Succ 50 MG TAB.ER.24H PO SCH (09:00)
[2019-11-08] MEDS: FLUoxetine 20 MG CAPSULE PO SCH (09:13)
[2019-11-08] MEDS: hydroCHLOROthiazide 25 MG TABLET PO SCH (09:13)
[2019-11-08] MEDS: Cholecalciferol (D-3) 1,000 UNIT (25MCG) TABLET PO SCH (09:14)
[2019-11-08] MEDS: Carbidopa/Levodopa 25/100 TABLET PO SCH ×3 (09:14→16:31)
[2019-11-08] MEDS: amLODIPine 5 MG TABLET PO SCH (09:15)
[2019-11-08] MEDS ORDERED: Carbidopa/Levodopa 25/100 TABLET PO ONE (17:00)
[2019-11-09 02:26] LABS: Hemoglobin 12.2 g/dL (12.9-16.9); Mean Corpuscular HGB Conc 35.9 g/dL (31.6-35.5); Mean Corpuscular Hemoglobin 34.9 pg (28.0-33.3); Mean Corpuscular Volume 97.1 fL (83.0-100.0); Mean Platelet Volume 10.4 fL (9.4-12.4); Platelet Count 192 K/mcL (140-400); Red Cell Distribution Width 13.1 % (11.5-14.5); White Blood Count 7.2 K/mcL (4.3-11.1)
[2019-11-09 02:42] LABS: BUN/Creatinine Ratio 21 (6-26); Blood Urea Nitrogen 21 mg/dL (8-23); Calcium 9.6 mg/dL (8.6-10.3); Carbon Dioxide 27 mEq/L (23-29); Chloride 97 mEq/L (98-107); Glucose 137 mg/dL (70-105); Osmolality,Calculated 283 (280-300); Potassium 3.4 mEq/L (3.5-5.1); Sodium 134 mEq/L (136-145); eGFR For African Americans > 60 (> 60); eGFR For Non-African Americans > 60 (> 60)
[2019-11-09 07:00] VITALS: BP 151/83
[2019-11-09] MEDS ORDERED: Aspirin Enteric Coated 81 MG Tablet PO SCH (09:00)
[2019-11-09] MEDS ORDERED: Carbidopa/Levodopa 25/100 TABLET PO SCH ×3 (09:00→16:00)
[2019-11-09] MEDS: Cholecalciferol (D-3) 1,000 UNIT (25MCG) TABLET PO SCH (10:02)
[2019-11-09] MEDS: FLUoxetine 20 MG CAPSULE PO SCH (10:02)
[2019-11-09] MEDS: hydroCHLOROthiazide 25 MG TABLET PO SCH (10:02)
[2019-11-09] MEDS: amLODIPine 5 MG TABLET PO SCH (10:03)
[2019-11-09] MEDS ORDERED: *HR* HYDROcodone/Acet 5/325 mg TABLET PO PRN (10:49)
== END 2019-11-09 13:29 | disposition home health service (06) ==
LOC: 3NENU 22:34 → EMEROOARM 22:34 → SUATTDRO 11-08 03:02 → 3NENU 11-08 03:35
PROVIDERS: ADMIT Student in an Organized Health Care Education/Training Program; ATTEND Family Medicine

== ENCOUNTER 2021-12-04 14:48 | Observation (INO) ==
[2021-12-04] MEDS ORDERED: 0.9 % Sodium Chloride 1,000 ML IVC ONE (16:11)
[2021-12-04] MEDS ORDERED: Acetaminophen 325 MG TABLET PO ONE (16:11)
[2021-12-04] MEDS ORDERED: Isovue-370 500 ML BOTTLE IVP ONE (16:11)
[2021-12-04 18:12] LABS: Bilirubin,Urine Negative (Negative); Blood,Urine Negative (Negative); Clarity,Urine Clear (Clear); Color,Urine Light-Yellow (Yellow); Glucose,Urine (UA) Normal (Normal); Ketones,Urine Negative (Negative); Leukocyte Esterase,Urine Negative (Negative); Nitrite,Urine Negative (Negative); Protein,Urine Negative (Neg-Trace); Specific Gravity,Urine 1.025 (1.010-1.025); Urobilinogen,Urine Normal (Normal)
[2021-12-04 18:40] LABS: Basophils % 0.3 %; Eosinophils % 0.5 %; Hemoglobin 10.9 g/dL (12.9-16.9); Immature Granulocytes % 0.3 % (0-4); Lymphocytes # 0.9 K/mcL (0.6-4.6); Lymphocytes % 23.8 %; Mean Corpuscular Hemoglobin 34.9 pg (28.0-33.3); Mean Corpuscular Volume 105.8 fL (83.0-100.0); Mean Platelet Volume 11.4 fL (9.4-12.4); Monocytes # 0.9 K/mcL (0.0-1.3); Monocytes % 22.3 %; Neutrophils # 2.1 K/mcL (1.6-8.9); Platelet Count 126 K/mcL (140-400); Red Blood Count 3.12 M/mcL (4.19-5.50); Red Cell Distribution Width 13.7 % (11.5-14.5); Segmented Neutrophils % 52.8 %; White Blood Count 3.9 K/mcL (4.3-11.1)
[2021-12-04 18:48] LABS: Alanine Aminotransferase 5 Units/L (7-52); Albumin 4.4 g/dL (3.5-5.7); Albumin/Globulin Ratio 1.8 (1.1-2.2); Alkaline Phosphatase 79 Units/L (34-104); Aspartate Amino Transferase 14 Units/L (13-39); BUN/Creatinine Ratio 16 (6-26); Blood Urea Nitrogen 18 mg/dL (8-23); Calcium 9.7 mg/dL (8.6-10.3); Carbon Dioxide 27 mEq/L (23-29); Chloride 98 mEq/L (98-107); Creatine Kinase 60 Units/L (30-223); Globulin 2.5 g/dL (2.4-3.5); Glucose 126 mg/dL (70-105); Osmolality,Calculated 281 (280-300); Potassium 3.4 mEq/L (3.5-5.1); Sodium 134 mEq/L (136-145); Total Protein 6.9 g/dL (6.4-8.9); Troponin I < 0.03 ng/mL (< 0.04); eGFR For African Americans > 60 (> 60); eGFR For Non-African Americans > 60 (> 60)
[2021-12-04 19:09] LABS: Large Platelets Present (Not Present); Reactive Lymphocytes Present (Not Present)
[2021-12-04] MEDS ORDERED: Furosemide 80 MG in 0.9 % Sodium Chloride 50 ML IV SCH (20:00)
[2021-12-04] MEDS ORDERED: Naloxone 0.4 MG/ML INJ IVP PRN (21:21)
[2021-12-04] MEDS ORDERED: MOM Conc 10 ML UD.LIQ PO PRN (21:21)
[2021-12-04] MEDS ORDERED: Acetaminophen 325 MG TABLET PO PRN (21:21)
[2021-12-04] MEDS ORDERED: *HR* HYDROcodone/Acet 5/325 mg TABLET PO PRN (21:21)
[2021-12-04] MEDS ORDERED: Ondansetron ODT 4 MG TAB.RAPDIS SL PRN (21:21)
[2021-12-04 21:46] LABS: Magnesium 1.8 mg/dL (1.6-2.6)
[2021-12-05 04:27] LABS: Basophils % 0.2 %; Eosinophils % 0.4 %
[2021-12-05 04:29] LABS: Hematocrit 31.1 % (37.5-50.1); Hemoglobin 10.6 g/dL (12.9-16.9); Immature Granulocytes % 0.9 % (0-4); Immature Platelets 6.2 % (1.1-6.1); Lymphocytes # 1.4 K/mcL (0.6-4.6); Lymphocytes % 30.4 %; Mean Corpuscular HGB Conc 34.1 g/dL (31.6-35.5); Mean Corpuscular Hemoglobin 35.6 pg (28.0-33.3); Mean Corpuscular Volume 104.4 fL (83.0-100.0); Mean Platelet Volume 10.8 fL (9.4-12.4); Monocytes # 0.9 K/mcL (0.0-1.3); Monocytes % 20.8 %; Neutrophils # 2.1 K/mcL (1.6-8.9); Platelet Count 119 K/mcL (140-400); Red Blood Count 2.98 M/mcL (4.19-5.50); Red Cell Distribution Width 13.7 % (11.5-14.5); Segmented Neutrophils % 47.3 %; White Blood Count 4.5 K/mcL (4.3-11.1)
[2021-12-05 04:35] LABS: INR 1.3; Prothrombin Time 14.3 Seconds (9.4-12.1)
[2021-12-05 04:47] LABS: BUN/Creatinine Ratio 15 (6-26); Blood Urea Nitrogen 15 mg/dL (8-23); Calcium 9.5 mg/dL (8.6-10.3); Carbon Dioxide 24 mEq/L (23-29); Chloride 99 mEq/L (98-107); Glucose 121 mg/dL (70-105); Magnesium 1.7 mg/dL (1.6-2.6); Osmolality,Calculated 278 (280-300); Phosphorous 3.2 mg/dL (2.7-4.5); Potassium 3.1 mEq/L (3.5-5.1); Sodium 133 mEq/L (136-145); eGFR For African Americans > 60 (> 60); eGFR For Non-African Americans > 60 (> 60)
[2021-12-05] MEDS: *HR* Heparin 5,000 UNIT/ML VIAL SQ SCH ×2 (05:09→18:32)
[2021-12-05] MEDS: amLODIPine 5 MG TABLET PO SCH (08:25)
[2021-12-05] MEDS: FLUoxetine 20 MG CAPSULE PO SCH (08:25)
[2021-12-05] MEDS: Aspirin Enteric Coated 81 MG Tablet PO SCH (08:25)
[2021-12-05] MEDS: Carbidopa/Levodopa 25/100 TABLET PO SCH ×3 (08:47→20:01)
[2021-12-05] MEDS ORDERED: Furosemide 40 MG/4 ML VIAL IVP SCH (09:00)
[2021-12-05 09:24] LABS: Troponin I < 0.03 ng/mL (< 0.04)
[2021-12-05] MEDS: Furosemide 40 MG/4 ML VIAL IVP SCH (20:01)
[2021-12-05] MEDS: Melatonin 3 MG TABLET PO PRN (20:02)
[2021-12-05] MEDS ORDERED: traZODone 50 MG TABLET PO ONE (20:50)
[2021-12-06] MEDS ORDERED: diazePAM 10 MG/2 ML SYRINGE IVP ONE (00:09)
[2021-12-06] MEDS: *HR* Heparin 5,000 UNIT/ML VIAL SQ SCH ×2 (05:11→16:30)
[2021-12-06] MEDS ORDERED: Furosemide 20 MG TABLET PO SCH (09:00)
[2021-12-06 10:06] LABS: BUN/Creatinine Ratio 17 (6-26); Blood Urea Nitrogen 19 mg/dL (8-23); Calcium 9.1 mg/dL (8.6-10.3); Carbon Dioxide 28 mEq/L (23-29); Chloride 97 mEq/L (98-107); Glucose 117 mg/dL (70-105); Osmolality,Calculated 279 (280-300); Potassium 2.9 mEq/L (3.5-5.1); Sodium 133 mEq/L (136-145); eGFR For African Americans > 60 (> 60); eGFR For Non-African Americans > 60 (> 60)
[2021-12-06] MEDS: Furosemide 40 MG/4 ML VIAL IVP SCH (10:32)
[2021-12-06] MEDS: Aspirin Enteric Coated 81 MG Tablet PO SCH (10:32)
[2021-12-06] MEDS: amLODIPine 5 MG TABLET PO SCH (10:33)
[2021-12-06] MEDS: FLUoxetine 20 MG CAPSULE PO SCH (10:33)
[2021-12-06] MEDS: Carbidopa/Levodopa 25/100 TABLET PO SCH ×3 (10:37→20:18)
[2021-12-06] MEDS ORDERED: QUEtiapine Fumarate 25 MG TABLET PO PRN (11:32)
[2021-12-06] MEDS ORDERED: 0.9 % Sodium Chloride 500 ML ONE (11:33)
[2021-12-06] MEDS ORDERED: 0.9 % Sodium Chloride 500 ML IV ONE (11:47)
[2021-12-06] MEDS: Furosemide 20 MG TABLET PO SCH (15:44)
[2021-12-06] MEDS: Melatonin 3 MG TABLET PO PRN (19:51)
[2021-12-07 01:22] LABS: Basophils % 0.3 %; Eosinophils % 1.1 %; Hematocrit 29.7 % (37.5-50.1); Hemoglobin 9.9 g/dL (12.9-16.9); Immature Granulocytes % 0.8 % (0-4); Lymphocytes # 0.9 K/mcL (0.6-4.6); Lymphocytes % 24.2 %; Mean Corpuscular HGB Conc 33.3 g/dL (31.6-35.5); Mean Corpuscular Hemoglobin 34.9 pg (28.0-33.3); Mean Corpuscular Volume 104.6 fL (83.0-100.0); Mean Platelet Volume 10.8 fL (9.4-12.4); Monocytes # 0.8 K/mcL (0.0-1.3); Monocytes % 22.8 %; Neutrophils # 1.8 K/mcL (1.6-8.9); Red Blood Count 2.84 M/mcL (4.19-5.50); Red Cell Distribution Width 13.9 % (11.5-14.5); Segmented Neutrophils % 50.8 %; White Blood Count 3.6 K/mcL (4.3-11.1)
[2021-12-07 01:37] LABS: BUN/Creatinine Ratio 18 (6-26); Blood Urea Nitrogen 21 mg/dL (8-23); Calcium 9.1 mg/dL (8.6-10.3); Carbon Dioxide 28 mEq/L (23-29); Chloride 99 mEq/L (98-107); Glucose 116 mg/dL (70-105); Magnesium 1.8 mg/dL (1.6-2.6); Osmolality,Calculated 284 (280-300); Phosphorous 3.2 mg/dL (2.7-4.5); Potassium 3.1 mEq/L (3.5-5.1); Sodium 135 mEq/L (136-145); eGFR For African Americans > 60 (> 60); eGFR For Non-African Americans > 60 (> 60)
[2021-12-07 02:58] LABS: Platelet Count 99 K/mcL (140-400)
[2021-12-07 03:00] LABS: Large Platelets Present (Not Present); Platelet Estimate Normal (Normal)
[2021-12-07] MEDS: *HR* Heparin 5,000 UNIT/ML VIAL SQ SCH ×2 (04:47→16:35)
[2021-12-07 07:27] VITALS: BP 161/75; PULSE 63; TEMP 97.8; O2SAT 93
[2021-12-07] MEDS ORDERED: Regadenoson 0.4 MG/5 ML SYRINGE IVP ONE (09:13)
[2021-12-07] MEDS: amLODIPine 5 MG TABLET PO SCH (09:42)
[2021-12-07] MEDS: FLUoxetine 20 MG CAPSULE PO SCH (09:42)
[2021-12-07] MEDS: Aspirin Enteric Coated 81 MG Tablet PO SCH (09:42)
[2021-12-07] MEDS: Furosemide 20 MG TABLET PO SCH (09:43)
[2021-12-07] MEDS: Carbidopa/Levodopa 25/100 TABLET PO SCH ×2 (09:44→13:47)
[2021-12-07 14:31] LABS: Influenza A PCR Negative (Negative); Influenza B PCR Negative (Negative); Resp. Syncytial Virus PCR Negative (Negative)
[2021-12-07 15:02] LABS: SARS-CoV-2 by PCR (In House) Negative (Negative)
[2021-12-08] MEDS ORDERED: Furosemide 40 MG TABLET PO SCH (09:00)
== END 2021-12-07 19:59 ==
LOC: 3BNU 14:48 → EMEROOARM 14:48 → SUATTDRO 20:14 → 3BNU 21:20
PROVIDERS: ADMIT Internal Medicine; ATTEND Internal Medicine